=== PATIENT | female | born 1970 | race Caucasian/White ===

== ENCOUNTER → 2016-08-08 | Outpatient (CLI) | payer BC, OTHER ==
[~2016-08-08] MED LIST: ANT25 PO; ATOR-24 PO; ATOR-54 PO; ATOR10TA88 PO; CHOL100041 PO; CYCL10TA6 PO; FERR325T5 PO; FERR325T51 PO; HYDR-5688 PO; MULT-260 PO; OMEG1CAP81 PO; OMEP20TA PO; ONDA4TAB10 SL; PRLSR20 PO; [UNRECOGNIZED DRUG - CODE] PO
== END | disposition home or self-care (01) ==
LOC: C.PAPS 15:11
PROVIDERS: ATTEND Obstetrics & Gynecology
DX: Z01.419 Encounter for gynecological examination (general) (routine) without abnormal findings (principal)

== ENCOUNTER → 2016-09-29 | Outpatient (CLI) | payer OTHER ==
[~2016-09-29] MED LIST changes: +ATOR10TA82 PO; -ATOR10TA88 PO
[2016-09-29 17:34] LABS: BASO % 0.4 %; BASO ABS # 0.03 K/uL (0-0.2); COMPLETE YES; EOS % 3.9 %; HEMATOCRIT 39.7 % (37-47); IG% 0.2 %; LYMPH % 38.1 %; LYMPH ABS # 3.13 K/uL (1.2-3.4); MEAN CELL VOLUME 84.1 fL (80-100); MEAN CORPUSCULAR HEMOGLOBIN 28.2 pg (25-34); MEAN CORPUSCULAR HGB CONC 33.5 g/dl (32-36); MEAN PLATELET VOLUME 10.4 fL (7.4-10.4); MONO % 6.9 %; NEUT % 50.5 %; PLATELET COUNT 310 K/uL (130-400); RED BLOOD COUNT 4.72 M/uL (4.2-5.4); WHITE BLOOD COUNT 8.22 K/uL (4.8-10.8)
[2016-09-29 17:53] LABS: URINE EPITHELIAL CELL AUTO 20-30 /lpf (0-5); ZZInitiateTest Complete
[2016-09-29 17:58] LABS: MANUAL MICROSCOPIC REQUIRED? NO; REVIEW REQ? NO
[2016-09-29 18:38] LABS: BLOOD UREA NITROGEN 15 mg/dl (7-18); BUN/CREATININE RATIO 15.1 (10-20); CALCIUM 8.7 mg/dl (8.5-10.1); CARBON DIOXIDE 24 mmol/L (21-32); CHLORIDE 107 mmol/L (98-107); CREATININE 0.99 mg/dl (0.60-1.20); GLUCOSE 104 mg/dl (70-99); SODIUM 139 mmol/L (136-145)
== END | disposition home or self-care (01) ==
LOC: C.LABPVFM 14:50
PROVIDERS: ATTEND Nurse Practitioner Family
DX: R10.9 Unspecified abdominal pain (principal)

== ENCOUNTER 2016-10-01 08:01 | Emergency (ER) | payer OTHER ==
[~2016-10-01] VITALS: Ht 165.1 cm; Wt 85.8 kg
[~2016-10-01 08:01] MED LIST changes: -ATOR-24 PO; -ATOR10TA82 PO; -CYCL10TA6 PO; -FERR325T5 PO; -HYDR-5688 PO; -ONDA4TAB10 SL; -PRLSR20 PO; -[UNRECOGNIZED DRUG - CODE] PO
[2016-10-01 08:06] VITALS: TEMP 36.8; Ht 165.1 cm; Wt 85.8 kg
[2016-10-01] MEDS ORDERED: SODIUM CHLORIDE 0.9% 1000ML 1,000 ML IV STA ×2 (08:21)
[2016-10-01] MEDS ORDERED: ONDANSETRON INJ 2 MG/ML 2 ML VIAL IV STA (08:21)
[2016-10-01] MEDS ORDERED: MoRPHine SULFATE 4 MG/ML 1 ML CARP\\VIAL IV STA (08:21)
[2016-10-01] MEDS ORDERED: MoRPHine SULFATE 4 MG/ML 1 ML CARP\\VIAL IV PRN (08:30)
[2016-10-01 08:35] LABS: URINE APPEARANCE CLOUDY (CLEAR); URINE BILIRUBIN NEG (NEG); URINE COLOR YELLOW; URINE EPITHELIAL CELL AUTO >30 /lpf (0-5); URINE NITRITE NEG (NEG); URINE SPECIFIC GRAVITY 1.018 (1.000-1.030); UROBILINOGEN NEG (NEG)
[2016-10-01 08:36] LABS: MANUAL MICROSCOPIC REQUIRED? NO; REVIEW REQ? NO
[2016-10-01 08:43] LABS: BASO % 0.3 %; BASO ABS # 0.02 K/uL (0-0.2); COMPLETE YES; EOS % 4.3 %; HEMATOCRIT 38.7 % (37-47); IG% 0.2 %; LYMPH % 34.2 %; LYMPH ABS # 2.14 K/uL (1.2-3.4); MEAN CELL VOLUME 83.8 fL (80-100); MEAN CORPUSCULAR HEMOGLOBIN 27.7 pg (25-34); MEAN CORPUSCULAR HGB CONC 33.1 g/dl (32-36); MEAN PLATELET VOLUME 9.8 fL (7.4-10.4); PLATELET COUNT 251 K/uL (130-400); RED BLOOD COUNT 4.62 M/uL (4.2-5.4); WHITE BLOOD COUNT 6.26 K/uL (4.8-10.8)
[2016-10-01] MEDS ORDERED: MoRPHine SULFATE 10 MG/ML CARP/VIAL IV STA (08:49)
[2016-10-01 08:57] LABS: BUN/CREATININE RATIO 17.8 (10-20); CREATININE 0.89 mg/dl (0.60-1.20)
[2016-10-01 09:00] LABS: ALB/GLOB RATIO 1.2 (0.9-2)
[2016-10-01] MEDS ORDERED: OPTIRAY 320 IV PRN (09:00)
[2016-10-01 09:06] LABS: CALCIUM 8.9 mg/dl (8.5-10.1)
[2016-10-01 09:20] LABS: PREG INTERNAL NEGATIVE QC NEG CLEAR BACKGROUND; PREG INTERNAL POSITIVE QC POS CONTROL LINE
--- NOTE | 2016-10-01 09:34 | DIAGNOSTIC IMAGING REPORT ---
CT ABD/PELVIS IV CONTRAST ONLY CLINICAL HISTORY: Left sided abdominal pain. History of diverticulitis. COMPARISON STUDY: September 2013 TECHNIQUE: Following the IV administration of 94 mL of Optiray-320, CT scan of the abdomen and pelvis was performed from the lung bases to the proximal femurs. Images are reviewed in the axial, sagittal, and coronal planes. IV contrast was administered without complication. CT DOSE: 585.84 mGy.cm FINDINGS: Lower chest: There are minor basilar atelectatic changes. There is a fat-containing left-sided Bochdalek hernia. Liver: There is mild hepatic steatosis. There are no focal masses. The portal vein appears patent. Gallbladder: Unremarkable. Spleen: Normal in size and attenuation. Pancreas: Unremarkable. Adrenal glands: Unremarkable. Kidneys: There are punctate bilateral nonobstructing renal calculi. No solid renal masses are visualized. There is no hydronephrosis. Bowel: There are no transition zones indicate bowel obstruction. The appendix appears normal. There is no acute diverticulitis. Peritoneum: There is no intraperitoneal free air or abdominal ascites. Vasculature: The abdominal aorta is normal in course and caliber. Adenopathy: None. Pelvic viscera: The bladder, and pelvic viscera are unremarkable. Skeletal structures: No destructive osseous lesions are seen. There is a stable nonaggressive sclerotic lesion within the left iliac bone. IMPRESSION: 1. No evidence of bowel obstruction. No evidence of free air 2. Normal appendix. No evidence of acute diverticulitis 3. Tiny bilateral nonobstructing renal calculi Electronically signed by: Jose Juan Carter M.D. 10/01/2016 9:32 AM Dictated Date/Time: 10/01/2016 9:26 AM
[2016-10-01] MEDS ORDERED: FERR325T5 PO (09:49)
[2016-10-01] MEDS ORDERED: [UNRECOGNIZED DRUG - CODE] PO (09:49)
[2016-10-01] MEDS ORDERED: ATOR-24 PO (09:49)
[2016-10-01] MEDS ORDERED: HYDR-5688 PO (10:50)
[2016-10-01] MEDS ORDERED: ONDA4TAB10 SL (10:50)
[2016-10-01] MEDS ORDERED: CYCL10TA6 PO (10:50)
--- NOTE | 2016-10-01 10:52 | EMERGENCY ROOM VISIT NOTE ---
History First contact with patient: 08:09 Chief Complaint: FLANK PAIN Stated Complaint: KIDNEY STONE-PAIN IN BACK AND LEFT SIDE History of Present Illness Patient is a 46-year-old white female who presents to the emergency department for evaluation of left flank pain 3 weeks. She has a remote history of kidney stones and states that it felt similar to her prior stone initially. She noted intermittent pain for the last 3 weeks. She would have about one episode of pain for about an hour once a day, and she states that it was tolerable. The pain would go away and she would fine. 3-4 days ago however, the pain worsened. It became more constant and more severe. She notes a deep, dull, aching pain in her left flank that radiates around to the left mid abdomen. She denies any associated nausea, vomiting, diarrhea or stool changes. No melena, hematochezia or hematemesis. She denies any dysuria, frequency, urgency or hematuria. She is perimenopausal and menses are irregular. She was seen by her site safety manager recently and her exam was unremarkable. She was seen by her PCP 2 days ago. She states that she had blood in her urine and they prescribed her tramadol, which did not help with her pain. She presently rates her discomfort a 6/10. She has not had a fever. She denies any chest pain, palpitations or shortness of breath, no cough, wheezing or sputum production. She has had a colonoscopy, 2 years ago, she reports they told her she had some diverticular disease. Review of Systems Review of systems as per HPI. All other systems reviewed were negative. 10 systems reviewed. Past Medical/Surgical History Medical Problems: (1) Headache (2) Migraines (3) Ovarian cyst (4) Renal colic on right side (5) Ureterolithiasis (6) Vertigo Surgical Problems: (1) History of wisdom tooth extraction (2) Previous section Electronic medical records are reviewed and summarized as above/below. See Problem List. Family History Diabetes mellitus FHx: cancer FHx: heart disease Kidney disease Kidney stones Social History Smoking Status: Never Smoker Alcohol Use: none Drug Use: none Marital Status: Housing Status: lives with family Occupation Status: employed Current/Historical Medications Scheduled Atorvastatin (Lipitor), 40 MG PO DAILY Cholecalciferol (D 1000), 1 CAP PO DAILY Ferrous Sulfate (Ferrous Sulfate), 1 TAB PO DAILY Multiple Vitamins W/ Minerals (Strovite One), 1 TAB PO DAILY [place]-3 Fatty Acids (Fish Oil), 1 CAP PO DAILY Omeprazole (Omeprazole), 1 TAB PO DAILY Scheduled PRN Cyclobenzaprine Hcl (Flexeril), 10 MG PO TID PRN for Muscle Spasms Hydrocodone/Acetaminophen 5MG/325MG ([place] 5MG/325MG), 1-2 TABLETS PO Q4 PRN for Pain Meclizine HCl (Meclizine HCl), 1 TAB PO TID PRN for Dizziness or Vertigo Ondasetron Odt (Zofran Odt), 4 MG SL Q6H PRN for Nausea or Vomiting Allergies Coded Allergies: No Known Allergies (Verified , 10/01/16) Physical Exam Vital Signs Date Time Temp Pulse Resp B/P Pulse Ox O2 Delivery O2 Flow Rate FiO2 10/01/16 11:04 73 18 105/79 97 Room Air 10/01/16 09:31 86 16 119/90 95 Room Air 10/01/16 08:06 36.8 66 18 123/85 99 Room Air Physical Exam CONSTITUTIONAL: Patient is a an uncomfortable-appearing 46-year-old white female who is awake and alert and in no acute distress. EYES: Pupils equal, round, reactive to light and accommodation. EOMs intact without nystagmus. Sclera are anicteric. ENT: Tympanic membranes intact, with normal landmarks. External canals are clear. Oral and nasopharynx are clear. Mucous membranes are moist, no lesions , tongue and gums appear normal. NECK: No bruits auscultated. Supple without lymphadenopathy. No thyromegaly. No meningeal signs. Full active range of motion without discomfort. CARDIOVASCULAR: Regular rate and rhythm, with normal S1 and S2, no murmur or gallop or rub is heard. No carotid bruits auscultated. No JVD. Peripheral pulses easily palpable. RESPIRATORY: Breath sounds equal and clear to auscultation without wheezes, rales, or rhonchi heard. Full and equal chest expansion without accessory muscle use or retractions. ABDOMEN: Bowel sounds are present. Abdomen is soft, nontender and nondistended. There is no guarding, rebound or rigidity. SPINE: Examination of the patient's back did not notice any rashes, lesions or or signs of trauma. She does have some reproducible paraspinous muscle tenderness in the left low thoracic/upper lumbar region. Full spine range of motion. INTEGUMENTARY: No lesions or rash, normal skin turgor. LYMPH: No lymphadenopathy. Medical Decision & Procedures ER Provider Diagnostic Interpretation: CT ABD/PELVIS IV CONTRAST ONLY CLINICAL HISTORY: Left sided abdominal pain. History of diverticulitis. COMPARISON STUDY: September 2013 TECHNIQUE: Following the IV administration of 94 mL of Optiray-320, CT scan of the abdomen and pelvis was performed from the lung bases to the proximal femurs. Images are reviewed in the axial, sagittal, and coronal planes. IV contrast was administered without complication. CT DOSE: 585.84 mGy.cm FINDINGS: Lower chest: There are minor basilar atelectatic changes. There is a fat-containing left-sided Bochdalek hernia. Liver: There is mild hepatic steatosis. There are no focal masses. The portal vein appears patent. Gallbladder: Unremarkable. Spleen: Normal in size and attenuation. Pancreas: Unremarkable. Adrenal glands: Unremarkable. Kidneys: There are punctate bilateral nonobstructing renal calculi. No solid renal masses are visualized. There is no hydronephrosis. Bowel: There are no transition zones indicate bowel obstruction. The appendix appears normal. There is no acute diverticulitis. Peritoneum: There is no intraperitoneal free air or abdominal ascites. Vasculature: The abdominal aorta is normal in course and caliber. Adenopathy: None. Pelvic viscera: The bladder, and pelvic viscera are unremarkable. Skeletal structures: No destructive osseous lesions are seen. There is a stable nonaggressive sclerotic lesion within the left iliac bone. IMPRESSION: 1. No evidence of bowel obstruction. No evidence of free air 2. Normal appendix. No evidence of acute diverticulitis 3. Tiny bilateral nonobstructing renal calculi Laboratory Results 10/01/16 08:25 Red Blood Count 4.62, Mean Corpuscular Volume 83.8, Mean Corpuscular Hemoglobin 27.7, Mean Corpuscular Hemoglobin Concent 33.1, Mean Platelet Volume 9.8, Neutrophils (%) (Auto) 53.0, Lymphocytes (%) (Auto) 34.2, Monocytes (%) (Auto) 8.0, Eosinophils (%) (Auto) 4.3, Basophils (%) (Auto) 0.3, Neutrophils # (Auto) 3.32, Lymphocytes # (Auto) 2.14, Monocytes # (Auto) 0.50, Eosinophils # (Auto) 0.27, Basophils # (Auto) 0.02 10/01/16 08:25 Test 10/01/16 08:24 10/01/16 08:25 Urine Color YELLOW Urine Appearance CLOUDY (CLEAR) Urine pH 7.0 (4.5-7.5) Urine Specific [place] 1.018 (1.000-1.030) Urine Protein NEG (NEG) Urine Glucose (UA) NEG (NEG) Urine Ketones NEG (NEG) Urine Occult Blood NEG (NEG) Urine Nitrite NEG (NEG) Urine Bilirubin NEG (NEG) Urine Urobilinogen NEG (NEG) Urine Leukocyte Esterase TRACE (NEG) Urine WBC (Auto) 1-5 /hpf (0-5) Urine RBC (Auto) 0-4 /hpf (0-4) Urine Hyaline Casts (Auto) 1-5 /lpf (0-5) Urine Epithelial Cells (Auto) >30 /lpf (0-5) Urine Bacteria (Auto) NEG (NEG) White Blood Count 6.26 K/uL (4.8-10.8) Red Blood Count 4.62 M/uL (4.2-5.4) Hemoglobin 12.8 g/dL (12.0-16.0) Hematocrit 38.7 % (37-47) Mean Corpuscular Volume 83.8 fL (80-100) Mean Corpuscular Hemoglobin 27.7 pg (25-34) Mean Corpuscular Hemoglobin Concent 33.1 g/dl (32-36) Platelet Count 251 K/uL (130-400) Mean Platelet Volume 9.8 fL (7.4-10.4) Neutrophils (%) (Auto) 53.0 % Lymphocytes (%) (Auto) 34.2 % Monocytes (%) (Auto) 8.0 % Eosinophils (%) (Auto) 4.3 % Basophils (%) (Auto) 0.3 % Neutrophils # (Auto) 3.32 K/uL (1.4-6.5) Lymphocytes # (Auto) 2.14 K/uL (1.2-3.4) Monocytes # (Auto) 0.50 K/uL (0.11-0.59) Eosinophils # (Auto) 0.27 K/uL (0-0.5) Basophils # (Auto) 0.02 K/uL (0-0.2) RDW Standard Deviation 41.3 fL (36.4-46.3) RDW Coefficient of Variation 13.6 % (11.5-14.5) Immature Granulocyte % (Auto) 0.2 % Immature Granulocyte # (Auto) 0.01 K/uL (0.00-0.02) Anion Gap 8.0 mmol/L (3-11) Est Creatinine Clear Calc Drug Dose 87.3 ml/min Estimated GFR () 91.4 Estimated GFR (Non- 78.8 BUN/Creatinine Ratio 17.8 (10-20) Calcium Level 8.9 mg/dl (8.5-10.1) Total Bilirubin 0.5 mg/dl (0.2-1) Aspartate Amino Transf (AST/SGOT) 22 U/L (15-37) Alanine Aminotransferase (ALT/SGPT) 43 U/L (12-78) Alkaline Phosphatase 83 U/L (45-117) Total Protein 7.5 gm/dl (6.4-8.2) Albumin 4.1 gm/dl (3.4-5.0) Globulin 3.4 gm/dl (2.5-4.0) Albumin/Globulin Ratio 1.2 (0.9-2) Lipase 144 U/L (73-393) Human Chorionic Gonadotropin, Qual NEG (NEG) Medications Administered Medications (Trade) Dose Ordered Sig/Marva Route Start Time Stop Time Status Last Admin Dose Admin Sodium Chloride 1,000 ml @ 999 mls/hr Q1H1M STAT IV 10/01/16 08:21 10/01/16 09:21 DC 10/01/16 08:39 999 MLS/HR Sodium Chloride (Nss 1000ml) 1,000 ml @ 250 mls/hr Q4H STAT IV 10/01/16 08:21 10/01/16 11:25 DC 10/01/16 08:40 250 MLS/HR Ondansetron HCl (Zofran Inj) 4 mg NOW STAT IV 10/01/16 08:21 10/01/16 08:23 DC 10/01/16 08:39 4 MG Morphine Sulfate (MoRPHine SULFATE INJ) 4 mg NOW STAT IV 10/01/16 08:21 10/01/16 08:23 DC 10/01/16 08:41 4 MG Morphine Sulfate (MoRPHine SULFATE INJ) 6 mg NOW STAT IV 10/01/16 08:49 10/01/16 08:50 DC 10/01/16 08:57 6 MG ED Course The patient was seen and evaluated as above. Her old records were reviewed. IV access was obtained and she was hydrated with normal saline solution. She was medicated with morphine 4 mg IV and Zofran 4 mg IV. A CBC with differential , CMP, lipase, urinalysis and tests were performed. The patient had little relief with her initial dose of morphine and was given an additional morphine 6 mg IV, with good relief of her pain. Laboratory studies did not demonstrate leukocytosis, anemia, or electrolyte imbalance. Liver functions and pancreatic markers are normal. Serum hCG is negative, and urinalysis shows trace leukocyte esterase with greater than 30 epithelial cells, indicative of contamination. There is no other evidence for infection and no blood. Given the persistent right flank pain 3 weeks, CT scan of the abdomen and pelvis with IV contrast was ordered. CT scan was essentially unremarkable. There were punctate bilateral nonobstructing renal calculi noted bilaterally without evidence for hydronephrosis. No evidence for bowel obstruction or acute diverticulitis. Pelvic organs were unremarkable. All laboratory and diagnostic imaging studies were reviewed with the patient. Conservative care measures were discussed. Possibility of her pain being related to a musculoskeletal condition was discussed. Differential diagnoses also entertained included UTI, pyelonephritis, renal colic, shingles, bowel obstruction, perforation, diverticulitis, ovarian cyst, ovarian torsion, PID, tubo-ovarian abscess, musculoskeletal injury, among others. Patient tolerated oral fluids and ice chips in the emergency department. She rated her pain a 0/ 10 at discharge. She was encouraged to follow-up closely with her primary care provider for further care and management particularly if her symptoms are not improving. Medical Decision See ED course. [place] Drug Monitoring Program Search Results: patient reviewed within database, no issues identified Drug Monitoring Findings: No controlled substance prescriptions noted in the last year. Impression Primary Impression: Left flank pain Departure Information Prescriptions Ondasetron Odt (ZOFRAN ODT) 4 Mg Tab 4 MG SL Q6H Y for Nausea or Vomiting, #20 TAB Prov: Martha Delgado PA 10/01/16 Cyclobenzaprine Hcl (FLEXERIL) 10 Mg Tab 10 MG PO TID Y for Muscle Spasms, #20 TAB Prov: Martha Delgado PA 10/01/16 Hydrocodone/Acetaminophen 5MG/325MG ([place] 5MG/325MG) Tab 1-2 TABLETS PO Q4 Y for Pain, #15 TAB For Initial Treatment Prov: Martha Delgado PA 10/01/16 Referrals Channing Mcbride M.D. (PCP) Patient Instructions My [facility] Additional Instructions DO NOT drive, drink alcohol, operate machinery, or perform dangerous activities today. You were given medications in the ER that can affect your ability to safely function or operate a vehicle. Hydrocodone/Acetaminophen ([place]) 5/325 mg: Take 1-2 pills every four hours for breakthrough pain. Avoid alcohol, operating machinery or dangerous equipment, working on ladders or roofs, DRIVING, or situations where being under the influence may be dangerous. It is recommended to use an [id number] stool softener such as Colace, 100mg twice daily while taking this medication to avoid constipation. Cyclobenzaprine (Flexeril) 10 mg: Take 1 pills 3 times daily as needed for muscle spasms.. Avoid alcohol, operating machinery or dangerous equipment, working on ladders or roofs, DRIVING, or situations where being under the influence may be dangerous. Zofran(odansetron) tablets 4mg: Take one and allow it to dissolve in your mouth every four to six hours as needed for nausea or vomiting. Ibuprofen(Motrin, Advil) may be used for fever or pain. Use 600mg every six hours as needed. Take with food. Avoid using more than 2400mg in a 24 hour period. Do not use 2400mg per day for more than three consecutive days without physician direction. Prolonged inappropriate use can lead to stomach upset or ulcers. This medication can be taken if you need to drive, work, or perform activities which may be dangerous when taking narcotic pain medication. Rest and avoid heavy lifting until your symptoms resolve and then gradually return to full activity. A good rule of thumb is if it hurts your back to perform a certain activity, then it should be avoided until you are healthy again. A heating pad, warm compresses, or a hot shower may help with tight muscles and can be done several times a day as needed. Continue current medications. Return to the ER immediately for any numbness, tingling, severe pain, vomiting, fevers, worsening symptoms or as needed. Follow up with your primary care physician within 3-5 days for a recheck of your current condition.
[2016-10-01 11:04] VITALS: BP 105/79; PULSE 73; O2SAT 97
[2017-03-10] MEDS ORDERED: ATOR10TA82 PO (11:00)
== END 2016-10-01 11:05 | disposition home or self-care (01) ==
LOC: C.EDB 08:03 → C.EDA 11:05
DX: R10.9 Unspecified abdominal pain (principal); K76.0 Fatty (change of) liver, not elsewhere classified; N20.0 Calculus of kidney

== ENCOUNTER → 2016-11-15 | Outpatient (CLI) | payer OTHER ==
[~2016-11-15] MED LIST changes: +ATOR-24 PO; -ATOR-54 PO; +ATOR10TA82 PO; +FERR325T5 PO; -FERR325T51 PO; +HYDR-5688 PO; -MULT-260 PO; +ONDA4TAB10 SL; +PRLSR20 PO; +[UNRECOGNIZED DRUG - CODE] PO
[2016-11-15 13:38] LABS: ALT/SGPT 52 U/L (12-78); BLOOD UREA NITROGEN 13 mg/dl (7-18); BUN/CREATININE RATIO 14.4 (10-20); CARBON DIOXIDE 25 mmol/L (21-32); CHLORIDE 106 mmol/L (98-107); CHOLESTEROL 304 mg/dl (0-200); CREATININE 0.91 mg/dl (0.60-1.20); GLUCOSE 125 mg/dl (70-99); POTASSIUM 4.4 mmol/L (3.5-5.1); SODIUM 142 mmol/L (136-145); TRIGLYCERIDES 168 mg/dl (0-150); VERY LOW DENSITY LIPOPROT CALC 34 mg/dl
[2016-11-15 13:39] LABS: CALCIUM 9.1 mg/dl (8.5-10.1)
[2016-11-15 13:40] LABS: ALKALINE PHOSPHATASE 88 U/L (45-117); AST/SGOT 25 U/L (15-37); CHOLESTEROL/HDL RATIO 5.8; HDL CHOLESTEROL 52 mg/dl; LDL CHOLESTEROL CALCULATED 218 mg/dl
== END | disposition home or self-care (01) ==
LOC: C.LABPVFM 08:01
PROVIDERS: ATTEND Family Medicine
DX: E78.5 Hyperlipidemia, unspecified (principal); R10.9 Unspecified abdominal pain

== ENCOUNTER → 2016-11-21 | Outpatient (CLI) | payer OTHER ==
[2016-11-22 06:38] LABS: ESTIMATED AVERAGE GLUCOSE 137 mg/dl; HA1C FLAG Normal (Normal)
== END | disposition home or self-care (01) ==
LOC: C.LABPVFM 11:35
PROVIDERS: ATTEND Family Medicine
DX: R73.9 Hyperglycemia, unspecified (principal)

== ENCOUNTER 2017-03-10 10:42 | Emergency (ER) | payer OTHER ==
[~2017-03-10] VITALS: Ht 162.6 cm; Wt 86.3 kg
[~2017-03-10 10:42] MED LIST changes: -ATOR10TA82 PO; -PRLSR20 PO
[2017-03-10 10:45] VITALS: TEMP 36.7; Ht 162.6 cm; Wt 86.3 kg
[2017-03-10] MEDS ORDERED: PRLSR20 PO (11:00)
[2017-03-10] MEDS ORDERED: ATOR10TA88 PO (11:00)
[2017-03-10 11:48] LABS: BASO % 0.3 %; BASO ABS # 0.02 K/uL (0-0.2); COMPLETE YES; EOS % 2.6 %; HEMATOCRIT 38.9 % (37-47); IG% 0.3 %; LYMPH ABS # 2.32 K/uL (1.2-3.4); MEAN CELL VOLUME 81.6 fL (80-100); MEAN CORPUSCULAR HGB CONC 33.2 g/dl (32-36); MEAN PLATELET VOLUME 9.5 fL (7.4-10.4); MONO % 6.5 %; NEUT % 52.3 %; PLATELET COUNT 298 K/uL (130-400); RED BLOOD COUNT 4.77 M/uL (4.2-5.4); WHITE BLOOD COUNT 6.11 K/uL (4.8-10.8)
[2017-03-10 12:00] LABS: BUN/CREATININE RATIO 11.7 (10-20); CALCIUM 9.4 mg/dl (8.5-10.1); CREATININE 0.87 mg/dl (0.60-1.20); INR 0.9 (0.9-1.1); PARTIAL THROMBOPLASTIN RATIO 1.1; POTASSIUM 3.8 mmol/L (3.5-5.1)
[2017-03-10 12:29] VITALS: BP 117/83; PULSE 71; O2SAT 100
--- NOTE | 2017-03-10 22:18 | EMERGENCY ROOM VISIT NOTE ---
History First contact with patient: 11:19 Chief Complaint: GI ASSESSMENT Stated Complaint: PASSING BLOOD WITH BM'S History of Present Illness The patient is a 46 year old female who presents to the Emergency Room with complaints of bright red rectal bleeding this morning 2. The patient reports no abdominal discomfort or cramping. The patient reports that she had nausea and vomiting 2 last that only lasted 24 hours. She had no diarrhea at that time. The patient denies eating any unusual foods or recent foreign travel. The patient did have an EGD and colonoscopy performed at 42 [address] Rivera, and was diagnosed with Ferguson's esophagus and diverticulosis. She denies history of polyps or hemorrhoids. She denies any family history of other GI diseases. The patient reports that her first bowel movement had a small amount of bright red blood. When she moved back to the bathroom approximately 30 minutes later, she reports that the toilet water was bright red. She also had a mild amount of bleeding with wiping. Since that time, she denies any bleeding into her underwear. The patient denies any abdominal pain, urinary symptoms, nausea or vomiting. She denies any recent antibiotic use. Review of Systems HEENT: Denies dizziness, visual problems, hearing loss, tinnitus. Denies difficulty swallowing or oral lesions. PULMONARY: Denies cough, shortness of breath, sputum production or hemoptysis. CARDIOVASCULAR: Denies chest pain, palpitations, dyspnea on exertion, orthopnea or peripheral edema. GASTROINTESTINAL: Denies recent diarrhea, constipation or abdominal pain. See history of present illness for some mild nausea and vomiting 5 days ago. GENITOURINARY: Denies dysuria, frequency, urgency or nocturia. NEUROLOGIC: Denies history of epilepsy, CVA, TIA or chronic headaches. MUSCULOSKELETAL: Denies history of joint tenderness/swelling. SKIN: Denies rashes or lesions. PSYCHIATRIC: Denies history of depression or mental illness. ENDOCRINE: Denies history of diabetes or thyroid disorders. Past Medical/Surgical History Medical Problems: (1) Headache (2) Migraines (3) Ovarian cyst (4) Renal colic on right side (5) Ureterolithiasis (6) Vertigo Surgical Problems: (1) History of wisdom tooth extraction (2) Previous section Family History Diabetes mellitus FHx: cancer FHx: heart disease Kidney disease Kidney stones Social History Smoking Status: Former Smoker Alcohol Use: none Drug Use: none Marital Status: Housing Status: lives with family Occupation Status: employed Current/Historical Medications Scheduled Atorvastatin (Lipitor), 10 MG PO DAILY Omeprazole (Prilosec), 20 MG PO DAILY Physical Exam Vital Signs Date Time Temp Pulse Resp B/P (MAP) Pulse Ox O2 Delivery O2 Flow Rate FiO2 03/10/17 12:29 71 16 117/83 100 03/10/17 10:45 36.7 76 16 142/96 96 Room Air Physical Exam CONSTITUTIONAL: Healthy and well nourished. Alert and oriented X 3 with positive affect. Patient does not appear in any acute distress. HEENT: Normocephalic, atraumatic. Pupils equal, round and reactive. No scleral icterus or conjunctival pallor. NECK: Full active range of motion without discomfort. RESPIRATORY: Clear to auscultation bilaterally with no wheezing, crackles, rhonchi or stridor. CARDIOVASCULAR: Regular rate and rhythm with no murmurs, rubs or gallops. GASTROINTESTINAL: Bowel sounds present in all quadrants. Abdominal exam is benign with no tenderness to palpation, rigidity, guarding or rebound. MUSCULOSKELETAL: Full range of motion of all joints without discomfort. INTEGUMENTARY: No rash or other significant dermatologic conditions noted. HEMATOLOGIC: No ecchymosis or petechiae noted. NEUROLOGIC: No focal neurologic deficits noted. Medical Decision & Procedures Laboratory Results 03/10/17 11:25 Red Blood Count 4.77, Mean Corpuscular Volume 81.6, Mean Corpuscular Hemoglobin 27.0, Mean Corpuscular Hemoglobin Concent 33.2, Mean Platelet Volume 9.5, Neutrophils (%) (Auto) 52.3, Lymphocytes (%) (Auto) 38.0, Monocytes (%) (Auto) 6.5, Eosinophils (%) (Auto) 2.6, Basophils (%) (Auto) 0.3, Neutrophils # (Auto) 3.19, Lymphocytes # (Auto) 2.32, Monocytes # (Auto) 0.40, Eosinophils # (Auto) 0.16, Basophils # (Auto) 0.02 03/10/17 11:25 Test 03/10/17 11:25 White Blood Count 6.11 K/uL (4.8-10.8) Red Blood Count 4.77 M/uL (4.2-5.4) Hemoglobin 12.9 g/dL (12.0-16.0) Hematocrit 38.9 % (37-47) Mean Corpuscular Volume 81.6 fL (80-100) Mean Corpuscular Hemoglobin 27.0 pg (25-34) Mean Corpuscular Hemoglobin Concent 33.2 g/dl (32-36) Platelet Count 298 K/uL (130-400) Mean Platelet Volume 9.5 fL (7.4-10.4) Neutrophils (%) (Auto) 52.3 % Lymphocytes (%) (Auto) 38.0 % Monocytes (%) (Auto) 6.5 % Eosinophils (%) (Auto) 2.6 % Basophils (%) (Auto) 0.3 % Neutrophils # (Auto) 3.19 K/uL (1.4-6.5) Lymphocytes # (Auto) 2.32 K/uL (1.2-3.4) Monocytes # (Auto) 0.40 K/uL (0.11-0.59) Eosinophils # (Auto) 0.16 K/uL (0-0.5) Basophils # (Auto) 0.02 K/uL (0-0.2) RDW Standard Deviation 41.2 fL (36.4-46.3) RDW Coefficient of Variation 13.7 % (11.5-14.5) Immature Granulocyte % (Auto) 0.3 % Immature Granulocyte # (Auto) 0.02 K/uL (0.00-0.02) Prothrombin Time 10.0 SECONDS (9.0-12.0) Prothromb Time International Ratio 0.9 (0.9-1.1) Activated Partial Thromboplast Time 27.3 SECONDS (21.0-31.0) Partial Thromboplastin Ratio 1.1 Anion Gap 10.0 mmol/L (3-11) Est Creatinine Clear Calc Drug Dose 87.7 ml/min Estimated GFR () 93.9 Estimated GFR (Non- 81.0 BUN/Creatinine Ratio 11.7 (10-20) Calcium Level 9.4 mg/dl (8.5-10.1) Total Bilirubin 0.5 mg/dl (0.2-1) Direct Bilirubin 0.1 mg/dl (0-0.2) Aspartate Amino Transf (AST/SGOT) 23 U/L (15-37) Alanine Aminotransferase (ALT/SGPT) 39 U/L (12-78) Alkaline Phosphatase 95 U/L (45-117) Total Protein 8.0 gm/dl (6.4-8.2) Albumin 4.2 gm/dl (3.4-5.0) The above labs were reviewed and were normal. ED Course Patient history and physical exam were performed. Nurse's notes were reviewed. Vital signs were reviewed, showing an elevated blood pressure of 142/96. She is otherwise afebrile and not tachycardic. Abdominal exam is benign. I did suggest checking some basic lab work. IV access was established, and labs were drawn. Review of labs shows no acute abnormalities. The patient was encouraged to follow-up with Dr. Rivera for further reevaluation and management. Return to the emergency department for any profuse rectal bleeding , vomiting or fever. The patient was happy with plan of care, and voiced understanding of all discharge instructions. Medical Decision Patient presents to the [facility] department for evaluation of bright red rectal bleeding 2 this morning. The patient denies any preceding symptoms. Her laboratory studies are not showing any hemodynamic instability. Her laboratory studies also do not suggest any other acute findings. I do feel for the patient is safe for outpatient GI follow-up, with instructions to return for any profuse rectal bleeding, vomiting or fever. Blood Pressure Screening Patient's blood pressure: Normal blood pressure Impression Primary Impression: Rectal bleed Departure Information Referrals Stacie Maldonado M.D. (PCP) Patient Instructions My [facility]
== END 2017-03-10 12:38 | disposition home or self-care (01) ==
LOC: C.EDB 10:43
DX: K62.5 Hemorrhage of anus and rectum (principal); Z87.891 Personal history of nicotine dependence

== ENCOUNTER → 2017-05-23 | Outpatient (CLI) | payer OTHER ==
[~2017-05-23] MED LIST changes: -ANT25 PO; -ATOR-24 PO; +ATOR10TA82 PO; -CHOL100041 PO; -FERR325T5 PO; -HYDR-5688 PO; -OMEG1CAP81 PO; -OMEP20TA PO; -ONDA4TAB10 SL; +PRLSR20 PO; -[UNRECOGNIZED DRUG - CODE] PO
[2017-05-23 13:20] LABS: ALT/SGPT 36 U/L (12-78); BLOOD UREA NITROGEN 14 mg/dl (7-18); CALCIUM 8.8 mg/dl (8.5-10.1); CARBON DIOXIDE 25 mmol/L (21-32); CHLORIDE 107 mmol/L (98-107); CHOLESTEROL 285 mg/dl (0-200); CREATININE 0.81 mg/dl (0.60-1.20); GLUCOSE 109 mg/dl (70-99); POTASSIUM 4.1 mmol/L (3.5-5.1); SODIUM 137 mmol/L (136-145); TRIGLYCERIDES 171 mg/dl (0-150); VERY LOW DENSITY LIPOPROT CALC 34 mg/dl
[2017-05-23 13:22] LABS: ALB/GLOB RATIO 1.1 (0.9-2)
[2017-05-23 13:23] LABS: ALKALINE PHOSPHATASE 93 U/L (45-117); AST/SGOT 20 U/L (15-37); HDL CHOLESTEROL 57 mg/dl; LDL CHOLESTEROL CALCULATED 194 mg/dl
[2017-05-23 13:33] LABS: ESTIMATED AVERAGE GLUCOSE 123 mg/dl; HA1C FLAG Normal (Normal)
== END | disposition home or self-care (01) ==
LOC: C.LABPVFM 08:40
PROVIDERS: ATTEND Family Medicine
DX: R73.9 Hyperglycemia, unspecified (principal); K21.9 Gastro-esophageal reflux disease without esophagitis; E78.5 Hyperlipidemia, unspecified; G43.909 Migraine, unspecified, not intractable, without status migrainosus

== ENCOUNTER → 2018-01-08 | Day surgery (SDC) | payer OTHER ==
[2017-12-30 13:45] VITALS: BMI 32.0
[~2018-01-08] VITALS: Ht 162.6 cm; Wt 84.5 kg
[~2018-01-08] MED LIST changes: +IBUP-1050 PO; +LIDOCAINE HCL 2% 2 ML VIAL (20MG/ML) ONE; +PROPOFOL IV EMULSION 10 MG/ML 20 ML VIAL ONE; +SODIUM CHLORIDE 0.9% 500ML 500 ML IV ONE; +SUMA50TA15 PO
[2018-01-08 08:00] VITALS: Ht 162.6 cm; Wt 84.5 kg
--- NOTE | 2018-01-08 08:42 | Endo History and Physical ---
History & Physical Date of Service: Jan 08, 2018. Chief Complaint: BARRETTS/ REFLUX Referring Physician: DR. CLEMENTS History of Present Illness Ferguson's follow up Past Surgical History Hx Cardiac Surgery: No Hx Internal Defibrillator: No Hx Pacemaker: No Hx Abdominal Surgery: Yes () Hx of Implantable Prosthesis: No Hx Post-Op Nausea and Vomiting: No Hx Cancer Surgery: No Hx Thoracic Surgery: No Hx Orthopedic: No Hx Urinary Tract Surgery: No Family History IBD Social History Smoking Status: Former Smoker Hx Substance Use: No Hx Alcohol Use: Yes (AN OCCASIONAL GLASS OF WINE) Allergies Coded Allergies: No Known Allergies (Verified , 01/08/18) Current Medications Reported Home Medications Medications Dose Route/Sig Max Daily Dose Days Date Category Advil (Ibuprofen) 200 Mg Tab 200 Mg PO PRN 01/08/18 Reported Imitrex (Sumatriptan Succinate) 50 Mg Tab 50 Mg PO PRN PRN 12/30/17 Reported Lipitor (Atorvastatin Calcium) 10 Mg Tab 10 Mg PO DAILY 03/10/17 Reported Prilosec (Omeprazole) 20 Mg Capcr 20 Mg PO DAILY 03/10/17 Reported Vital Signs Weight (Kilograms): 84.55 Height (Feet): 5 Height (Inches): 4 Date Time Temp Pulse Resp B/P (MAP) Pulse Ox O2 Delivery O2 Flow Rate FiO2 01/08/18 08:14 36.7 67 18 120/75 (90) 97 Room Air Physical Exam General Appearance: WD/WN, no apparent distress Respiratory/Chest: Auscultation: breath sounds normal, no wheezing Cardiovascular: Heart Auscultation: RRR, no murmurs Abdomen: Inspection & Palpation: soft, no tenderness, guarding & rebound Assessment and Plan EGD today
--- NOTE | 2018-01-08 08:58 | Discharge Instructions ---
Endoscopy Patient Instructions Date / Procedure(s) Performed Jan 08, 2018. EGD Allergy Information Coded Allergies: No Known Allergies (Verified , 01/08/18) Discharge Date / Findings Jan 08, 2018. No significant endoscopic inflammation, small hiatal hernia Medication Instructions Restart Stopped Medication(s): Restart medications today. Provider Instructions Activity Restrictions - No exercising or heavy lifting for 24 hours. - Do not drink alcohol the day of the procedure. - Do not drive a car or operate machinery until the day after the procedure. - Do not make any important decisions or sign important papers in 24 hours after the procedure. Following Day: - Return to full activity which may include returning to work/school. Diet Start your diet with liquids and light foods (jello, soup, juice, toast). Then eat your usual diet if not nauseated. Treatment For Common After Affects For mild abdominal pain, bloating, or excessive gas: - Rest - Eat lightly - Lie on right side Follow-Up Information Follow-up with DR. CLEMENTS as scheduled Anesthesia Information What You Should Know You have had a procedure that required some medicine to reduce anxiety and discomfort. This treatment is called moderate sedation. After receiving the treatment, you may be sleepy, but you will be able to breathe on your own. The effects of the treatment may last for several hours. Follow these instructions along with Activity/Diet recommendations noted above: * Do NOT do anything where dizziness or clumsiness would be dangerous. * Rest quietly at home today, then you can be up and about tomorrow. * Have a responsible person stay with you the rest of today. * You may have had an I.V. today. If so, you may take the dressing off later today. Recommendations Call your doctor if: * Trouble breathing * Continuous vomiting for more than 24 hours * Temperature above 101 degrees * Severe abdominal pain or bloating * Pain not relieved by pain medicine ordered * There is increased drainage or redness from any incision * A large amount of rectal bleeding greater than 2-3 tablespoons. (If you had a polyp/s removed or have hemorrhoids, a small amount of blood - from the rectum is to be expected.) * You have any unanswered questions or concerns. IN THE EVENT OF A SERIOUS EMERGENCY, GO TO THE NEAREST EMERGENCY ROOM Your discharge instructions were prepared by provider Carrillo Rivera. Patient Instructions Signature Page Yudy Craft Patient (or Guardian) Signature/Date: I have read and understand the instructions given to me by my caregivers. Caregiver/RN/Doctor Signature/Date: The above-named patient and/or guardian has received patient instructions on this date. + Original Patient Signature Page (only) stays with chart. Please make copy for patient.
[2018-01-08 09:28] VITALS: BP 114/84; PULSE 63; O2SAT 98
--- NOTE | 2018-01-08 09:34 | Anesthesiology Progress Note ---
Anesthesia Post Op Note Date & Time Jan 08, 2018 at 09:34 Vital Signs Vital Signs Past 12 Hours Date Time Temp Pulse Resp B/P (MAP) Pulse Ox O2 Delivery O2 Flow Rate FiO2 01/08/18 09:28 63 18 114/84 (94) 98 Room Air 01/08/18 09:13 78 18 100/77 (85) 96 Room Air 01/08/18 08:57 70 18 103/66 (78) 95 Room Air 01/08/18 08:14 36.7 67 18 120/75 (90) 97 Room Air Notes Mental Status: alert / awake / arousable, participated in evaluation Pt Amnestic to Procedure: Yes Nausea / Vomiting: adequately controlled Pain: adequately controlled Airway Patency, RR, SpO2: stable & adequate BP & HR: stable & adequate Hydration State: stable & adequate Anesthetic Complications: no major complications apparent
--- NOTE | 2018-01-08 09:36 | GI REPORT ---
Patient Name: Yudy Craft Procedure Date: 01/08/2018 8:19 AM Date of : 1970 Admit Type: Outpatient Age: 47 Gender: Female Attending MD: Carrillo Rivera MD Procedure: Upper GI endoscopy Providers: Carrillo Rivera MD Referring MD: Stacie Maldonado Indications: Follow-up of Ferguson's esophagus Medicines: Propofol per Anesthesia Complications: No immediate complications. Estimated blood loss: None. Estimated Blood Loss: Estimated blood loss: none. Procedure: Pre-Anesthesia Assessment: - Prior to the procedure, a History and Physical was performed, and patient medications, allergies and sensitivities were reviewed. The patient's tolerance of previous anesthesia was reviewed. - ASA Grade Assessment: II - A patient with mild systemic disease. After obtaining informed consent, the endoscope was passed under direct vision. Throughout the procedure, the patient's blood pressure, pulse, and oxygen saturations were monitored continuously. The scope was introduced through the anus and advanced to the third part of duodenum. After obtaining informed consent, the endoscope was passed under direct vision. Throughout the procedure, the patient's blood pressure, pulse, and oxygen saturations were monitored continuously. The upper GI endoscopy was accomplished with ease. The patient tolerated the procedure well. Findings: The upper third of the esophagus, middle third of the esophagus and lower third of the esophagus were normal. The esophagus and gastroesophageal junction were examined with white light and narrow band imaging (NBI) from a forward view and retroflexed position. There was no visual evidence of Ferguson's esophagus. Mucosa was biopsied with a cold forceps for histology in 4 quadrants at the gastroesophageal junction. One specimen bottle was sent to pathology. A small sliding hiatal hernia was present. Striped mildly erythematous mucosa was found in the gastric antrum. The examined duodenum was normal. Verification of patient identification for the specimen was done by the physician and nurse using the patient's name, date and medical record number. Impression: - Normal upper third of esophagus, middle third of esophagus and lower third of esophagus. - There is no endoscopic evidence of Ferguson's esophagus. Biopsied. - Small hiatal hernia. - Erythematous mucosa in the antrum. - Normal examined duodenum. Recommendation: - Await pathology results. - Continue present medications. Carrillo Rivera M.D. Carrillo Rivera MD 01/08/2018 9:36:31 AM This report has been signed electronically. Note Initiated On: 01/08/2018 8:19 AM Number of Addenda: 0 I attest to the content of the Intraoperative Record and orders documented therein, exceptions below {[id number]}
== END | disposition home or self-care (01) ==
LOC: C.GI 07:43
PROVIDERS: ATTEND Internal Medicine Gastroenterology
DX: K22.9 Disease of esophagus, unspecified (principal); K21.9 Gastro-esophageal reflux disease without esophagitis; K44.9 Diaphragmatic hernia without obstruction or gangrene; Z87.891 Personal history of nicotine dependence